=== PATIENT | male | born 1995 | race Caucasian/White ===

== ENCOUNTER → 2024-10-25 16:58 | Outpatient (REF) | payer BC, SELFPAY | LOC: HWRAD 16:58 | PROVIDERS: ATTENDING PHYSICIAN Family Medicine; FAMILY PHYSICIAN Family Medicine | DX: M25.531 Pain in right wrist (principal); M67.40 Ganglion, unspecified site; N52.9 Male erectile dysfunction, unspecified | CPT/HCPCS: 73110 ==

== ENCOUNTER → 2024-12-02 12:02 | Outpatient (REF) | payer BC, SELFPAY | LOC: HWRAD 12:02 | PROVIDERS: FAMILY PHYSICIAN Family Medicine | DX: M89.9 Disorder of bone, unspecified (principal) | CPT/HCPCS: 71046 ==

== ENCOUNTER → 2025-01-20 14:29 | Outpatient (REF) | payer BC, SELFPAY | LOC: HWRAD 14:29 | PROVIDERS: ATTENDING PHYSICIAN Family Medicine | DX: N50.89 Other specified disorders of the male genital organs (principal) | CPT/HCPCS: 76870; 93976 ==